=== PATIENT | female | born 1965 | race Caucasian/White ===

== ENCOUNTER 2022-06-21 05:43 | Inpatient (IN) ==
[2022-06-21] MEDS ORDERED: CLINDAMYCIN INJ 900 MG/50 ML PREMIX IV ONE (06:00)
[2022-06-21] MEDS ORDERED: VANCOMYCIN INJ 1,000 MG in SODIUM CHLORIDE 0.9% 250 ML IV ONE (06:00)
[2022-06-21] MEDS ORDERED: LIDOCAINE 2% 5 ML VIAL ONE ×2 (06:38→06:47)
[2022-06-21] MEDS ORDERED: ROCURONIUM 50 MG/5 ML VIAL IV ONE (06:38)
[2022-06-21] MEDS ORDERED: DEXAMETHASONE 4 MG/1 ML VIAL ONE ×2 (06:38→06:47)
[2022-06-21] MEDS ORDERED: propofoL 200 MG/20 ML VIAL IV ONE (06:38)
[2022-06-21] MEDS ORDERED: MIDAZOLAM 2 MG/2 ML VIAL ONE ×2 (06:38→06:39)
[2022-06-21] MEDS ORDERED: ONDANSETRON 4 MG/2 ML VIAL ONE (06:38)
[2022-06-21] MEDS ORDERED: fentaNYL 250 MCG/5 ML VIAL ONE (06:39)
[2022-06-21] MEDS ORDERED: DEXMEDETOMIDINE 200 MCG/2 ML VIAL ONE (06:39)
[2022-06-21] MEDS ORDERED: KETAMINE 500 MG/10 ML VIAL ONE (06:39)
[2022-06-21] MEDS ORDERED: SODIUM CHLORIDE 0.9% 100 ML IV ONE (06:40)
[2022-06-21] MEDS ORDERED: TRANEXAMIC ACID 1,000 MG/10 ML VIAL ONE (06:40)
[2022-06-21] MEDS ORDERED: SUCCINYLCHOLINE 200 MG/10 ML VIAL ONE (06:41)
[2022-06-21] MEDS: LACTATED RINGERS 1,000 ML IV SCH ×2 (06:45→09:20)
[2022-06-21] MEDS ORDERED: ROPIVACAINE 0.5% 30 ML VIAL ONE (06:47)
[2022-06-21 06:52] LABS: INR 0.9; PT Patient Result 10.1 SECS (10.1-12.1); Partial Thromboplastin Time 29.4 SECS (23.7-32.9)
[2022-06-21] MEDS ORDERED: SCOPOLAMINE 1.5 MG PATCH TRANSDERM ONE (07:02)
[2022-06-21] MEDS ORDERED: MAGNESIUM HYDROXIDE SUSP 30 ML UDCUP PO PRN (07:09)
[2022-06-21] MEDS ORDERED: ONDANSETRON 4 MG/2 ML VIAL IV PRN ×2 (07:10→09:04)
[2022-06-21] MEDS ORDERED: oxyCODONE/ACETAMINOPHEN 5-325 MG TABLET PO PRN ×2 (07:10)
[2022-06-21] MEDS ORDERED: MORPHINE 2 MG/1 ML SYRINGE IV PRN ×2 (07:10→07:22)
[2022-06-21] MEDS ORDERED: PROMETHAZINE 25 MG/1 ML VIAL IM PRN (07:10)
[2022-06-21] MEDS ORDERED: BISACODYL 10 MG SUPP RECTAL PRN (07:10)
[2022-06-21] MEDS ORDERED: diphenhydrAMINE CAP 25 MG CAPSULE PO PRN (07:10)
[2022-06-21] MEDS ORDERED: TEMAZEPAM 7.5 MG CAPSULE PO PRN (07:10)
[2022-06-21] MEDS ORDERED: LACTULOSE 20 GM/30 ML UDCUP PO PRN (07:10)
[2022-06-21] MEDS ORDERED: [UNRECOGNIZED DRUG - OTHER] PO PRN (07:13)
[2022-06-21] MEDS ORDERED: PROMETHAZINE 25 MG TABLET PO PRN (07:13)
[2022-06-21] MEDS ORDERED: ALBUTEROL/IPRATROPIUM 3 ML NEB RESP TX PRN (07:13)
[2022-06-21] MEDS ORDERED: ONDANSETRON ODT 4 MG TABLET PO PRN (07:13)
[2022-06-21] MEDS ORDERED: ACETAMINOPHEN INJ 1,000 MG/100 ML VIAL IV ONE (07:25)
[2022-06-21] MEDS ORDERED: LABETALOL 20 MG/4 ML SYRINGE IV ONE (07:57)
[2022-06-21] MEDS ORDERED: NEOSTIGMINE 10 MG/10 ML VIAL ONE (08:16)
[2022-06-21] MEDS ORDERED: HYDROmorphone 1 MG/1 ML SYRINGE ONE (08:16)
[2022-06-21] MEDS ORDERED: GLYCOPYRROLATE 0.4 MG/2 ML VIAL ONE (08:16)
[2022-06-21] MEDS ORDERED: NALOXONE 0.4 MG/ML VIAL IV PRN (08:33)
[2022-06-21] MEDS ORDERED: ALBUTEROL 2.5 MG/3 ML NEB RESP TX ONE (08:45)
[2022-06-21] MEDS ORDERED: HYDROmorphone PCA 30 MG/30 ML SYRINGE IV SCH (09:00)
[2022-06-21] MEDS ORDERED: NON-FORMULARY MEDICATION (L. Gasseri-B. Bifidum-B Longum [Phillips' Colon Health] 1.5 bill PO SCH (09:00)
[2022-06-21] MEDS ORDERED: PROMETHAZINE INJ 25 MG in SODIUM CHLORIDE 0.9% 50 ML IV PRN (09:04)
[2022-06-21] MEDS ORDERED: diphenhydrAMINE 50 MG/1 ML VIAL IV PRN (09:04)
[2022-06-21] MEDS ORDERED: MEPERIDINE 25 MG/1 ML VIAL IV PRN (09:04)
[2022-06-21] MEDS: HYDROmorphone 1 MG/1 ML SYRINGE IV PRN ×5 (09:50→20:16)
[2022-06-21] MEDS: DOCUSATE SODIUM 100 MG CAPSULE PO SCH ×2 (13:38→20:09)
[2022-06-21] MEDS: FEXOFENADINE 180 MG TABLET PO SCH (13:38)
[2022-06-21] MEDS: PANTOPRAZOLE 40 MG TABLET PO SCH ×2 (13:38→20:09)
[2022-06-21] MEDS: CLINDAMYCIN INJ 900 MG/50 ML PREMIX IV SCH ×2 (13:38→22:32)
[2022-06-21] MEDS: tiZANidine 4 MG TABLET PO PRN (13:39)
[2022-06-21] MEDS: GABAPENTIN 400 MG CAPSULE PO SCH ×2 (15:35→20:09)
[2022-06-21] MEDS: NICOTINE 14 MG/24 HR PATCH TRANSDERM SCH (17:24)
[2022-06-21] MEDS: FERROUS SULFATE 325 MG TABLET PO SCH (17:24)
[2022-06-21] MEDS: FONDAPARINUX 2.5 MG/0.5 ML SYRINGE SUBCUT SCH (20:09)
[2022-06-21] MEDS ORDERED: [UNRECOGNIZED DRUG - REMARK] PO SCH (21:00)
[2022-06-22] MEDS: HYDROmorphone 1 MG/1 ML SYRINGE IV PRN ×7 (00:55→23:25)
[2022-06-22] MEDS: oxyCODONE/ACETAMINOPHEN 5-325 MG TABLET PO PRN ×3 (02:49→12:06)
[2022-06-22 05:01] LABS: Basophils % 0.2 % (0.0-0.8); Eosinophils # 0.1 10*3/uL (0.0-0.87); Eosinophils % 0.3 % (0.00-10.9); Hematocrit 40.7 VOL% (35.7-47.0); Hemoglobin 13.7 GM/DL (12.0-16.0); Immature Granulocytes % 0.7 %; Immature Granulocytes Absolute 0.16 #; Lymphocytes % 8.6 % (21.3-54.2); Mean Corpuscular HGB Conc 33.7 GM/DL (32-36); Mean Corpuscular Volume 91.9 FL (87-102); Mean Platelet Volume 9.5 FL (9.6-12.0); Monocytes # 0.9 10*3/uL (0.11-0.8); Neutrophils % 86.2 % (38.7-73.9); Platelet Count 266 T/CUMM (130-400); Red Blood Count 4.43 MC/CUMM (3.8-5.5); Red Cell Distribution Width 13.2 % (9.3-17.3)
[2022-06-22 05:12] LABS: Calcium 9.7 MG/DL (8.5-10.1); Osmolality,Calculated 266.2 MOS/KG (273-304)
[2022-06-22 05:24] LABS: Band Neutrophils 1 % (0-10); Lymphocytes 15 % (20-55); Microcytosis Slight; Total Cells Counted 100
[2022-06-22 05:25] LABS: Platelet Estimate Normal
[2022-06-22] MEDS: [UNRECOGNIZED DRUG - REMARK] PO SCH ×2 (07:32→18:00)
[2022-06-22] MEDS: POTASSIUM CHLORIDE 20 MEQ TABLET PO SCH (08:31)
[2022-06-22] MEDS: NEBIVOLOL 10 MG TABLET PO SCH (08:32)
[2022-06-22] MEDS: ATORVASTATIN 20 MG TABLET PO SCH (08:33)
[2022-06-22] MEDS: DOCUSATE SODIUM 100 MG CAPSULE PO SCH ×2 (08:33→21:51)
[2022-06-22] MEDS: GABAPENTIN 400 MG CAPSULE PO SCH ×3 (08:33→21:51)
[2022-06-22] MEDS: MULTIVITAMIN (CENTRUM) TABLET PO SCH (08:33)
[2022-06-22] MEDS: FERROUS SULFATE 325 MG TABLET PO SCH ×2 (08:33→18:46)
[2022-06-22] MEDS: amLODIPine 10 MG TABLET PO SCH (08:34)
[2022-06-22] MEDS: lisinopriL 20 MG TABLET PO SCH (08:34)
[2022-06-22] MEDS: FEXOFENADINE 180 MG TABLET PO SCH (09:26)
[2022-06-22] MEDS: PANTOPRAZOLE 40 MG TABLET PO SCH ×2 (10:08→21:50)
[2022-06-22] MEDS: FLUTICASONE 50 MCG NASAL SPRAY 16 GM BOTTLE BOTH NARES SCH (10:49)
[2022-06-22] MEDS ORDERED: KETOROLAC 30 MG/1 ML VIAL IV ONE (11:23)
[2022-06-22] MEDS: NICOTINE 14 MG/24 HR PATCH TRANSDERM SCH ×2 (12:46→18:46)
[2022-06-22] MEDS ORDERED: oxyCODONE/ACETAMINOPHEN 5-325 MG TABLET PO PRN (13:56)
[2022-06-22] MEDS: KETOROLAC 15 MG/1 ML VIAL IV SCH ×2 (14:16→21:55)
[2022-06-22] MEDS ORDERED: ROPIVACAINE 0.5% 30 ML VIAL ONE (14:55)
[2022-06-22] MEDS ORDERED: DEXAMETHASONE 4 MG/1 ML VIAL ONE (14:55)
[2022-06-22] MEDS ORDERED: LIDOCAINE 50 MG/5 ML SYRINGE ONE (14:55)
[2022-06-22] MEDS ORDERED: DEXMEDETOMIDINE 200 MCG/2 ML VIAL ONE (14:59)
[2022-06-22] MEDS: FONDAPARINUX 2.5 MG/0.5 ML SYRINGE SUBCUT SCH (21:50)
[2022-06-23] MEDS: KETOROLAC 15 MG/1 ML VIAL IV SCH ×4 (02:00→21:39)
[2022-06-23] MEDS: HYDROmorphone 1 MG/1 ML SYRINGE IV PRN ×4 (04:17→19:20)
[2022-06-23] MEDS: [UNRECOGNIZED DRUG - REMARK] PO SCH ×2 (05:30→17:34)
[2022-06-23] MEDS: oxyCODONE/ACETAMINOPHEN 5-325 MG TABLET PO PRN ×3 (07:36→15:32)
[2022-06-23] MEDS: FERROUS SULFATE 325 MG TABLET PO SCH ×2 (08:33→16:00)
[2022-06-23] MEDS: PANTOPRAZOLE 40 MG TABLET PO SCH ×2 (08:34→21:43)
[2022-06-23] MEDS: DOCUSATE SODIUM 100 MG CAPSULE PO SCH ×2 (08:34→21:44)
[2022-06-23] MEDS: lisinopriL 20 MG TABLET PO SCH (08:34)
[2022-06-23] MEDS: FEXOFENADINE 180 MG TABLET PO SCH (08:34)
[2022-06-23] MEDS: GABAPENTIN 400 MG CAPSULE PO SCH ×3 (08:34→21:42)
[2022-06-23] MEDS: MULTIVITAMIN (CENTRUM) TABLET PO SCH (08:34)
[2022-06-23] MEDS: NEBIVOLOL 10 MG TABLET PO SCH (08:34)
[2022-06-23] MEDS: ATORVASTATIN 20 MG TABLET PO SCH (08:34)
[2022-06-23] MEDS: FLUTICASONE 50 MCG NASAL SPRAY 16 GM BOTTLE BOTH NARES SCH (08:34)
[2022-06-23] MEDS: POTASSIUM CHLORIDE 20 MEQ TABLET PO SCH (08:34)
[2022-06-23] MEDS: amLODIPine 10 MG TABLET PO SCH (08:34)
[2022-06-23] MEDS: NICOTINE 14 MG/24 HR PATCH TRANSDERM SCH (16:00)
[2022-06-23] MEDS: FONDAPARINUX 2.5 MG/0.5 ML SYRINGE SUBCUT SCH (21:39)
[2022-06-23] MEDS: ACETAMINOPHEN 500 MG TABLET PO SCH (21:42)
[2022-06-23] MEDS: oxyCODONE IR 5 MG TABLET PO PRN (22:58)
[2022-06-24] MEDS: HYDROmorphone 1 MG/1 ML SYRINGE IV PRN ×5 (00:41→21:43)
[2022-06-24] MEDS: KETOROLAC 15 MG/1 ML VIAL IV SCH ×4 (03:57→20:20)
[2022-06-24] MEDS: ACETAMINOPHEN 500 MG TABLET PO SCH ×3 (05:41→21:42)
[2022-06-24] MEDS: [UNRECOGNIZED DRUG - REMARK] PO SCH (05:42)
[2022-06-24] MEDS: NEBIVOLOL 10 MG TABLET PO SCH (09:59)
[2022-06-24] MEDS: oxyCODONE IR 5 MG TABLET PO PRN ×2 (09:59→14:29)
[2022-06-24] MEDS: amLODIPine 10 MG TABLET PO SCH (10:00)
[2022-06-24] MEDS: MULTIVITAMIN (CENTRUM) TABLET PO SCH (10:00)
[2022-06-24] MEDS: DOCUSATE SODIUM 100 MG CAPSULE PO SCH ×2 (10:00→20:18)
[2022-06-24] MEDS: POTASSIUM CHLORIDE 20 MEQ TABLET PO SCH (10:01)
[2022-06-24] MEDS: FEXOFENADINE 180 MG TABLET PO SCH (10:01)
[2022-06-24] MEDS: ATORVASTATIN 20 MG TABLET PO SCH (10:01)
[2022-06-24] MEDS: FERROUS SULFATE 325 MG TABLET PO SCH ×2 (10:01→16:04)
[2022-06-24] MEDS: lisinopriL 20 MG TABLET PO SCH (10:01)
[2022-06-24] MEDS: PANTOPRAZOLE 40 MG TABLET PO SCH ×2 (10:01→20:17)
[2022-06-24] MEDS: GABAPENTIN 400 MG CAPSULE PO SCH ×3 (10:02→20:17)
[2022-06-24] MEDS: FLUTICASONE 50 MCG NASAL SPRAY 16 GM BOTTLE BOTH NARES SCH (10:23)
[2022-06-24] MEDS: ACETAMINOPHEN 325 MG TABLET PO PRN (14:29)
[2022-06-24] MEDS: NICOTINE 14 MG/24 HR PATCH TRANSDERM SCH (16:06)
[2022-06-24] MEDS: FONDAPARINUX 2.5 MG/0.5 ML SYRINGE SUBCUT SCH (20:17)
[2022-06-25] MEDS: HYDROmorphone 1 MG/1 ML SYRINGE IV PRN ×5 (03:52→20:57)
[2022-06-25] MEDS: KETOROLAC 15 MG/1 ML VIAL IV SCH ×4 (04:29→20:56)
[2022-06-25] MEDS: ACETAMINOPHEN 500 MG TABLET PO SCH ×3 (05:33→22:04)
[2022-06-25] MEDS: oxyCODONE IR 5 MG TABLET PO PRN ×3 (05:42→23:36)
[2022-06-25] MEDS: [UNRECOGNIZED DRUG - REMARK] PO SCH ×3 (06:08→17:01)
[2022-06-25] MEDS: FERROUS SULFATE 325 MG TABLET PO SCH ×2 (08:43→16:22)
[2022-06-25] MEDS: lisinopriL 20 MG TABLET PO SCH (08:44)
[2022-06-25] MEDS: NEBIVOLOL 10 MG TABLET PO SCH (08:44)
[2022-06-25] MEDS: ATORVASTATIN 20 MG TABLET PO SCH (08:44)
[2022-06-25] MEDS: MULTIVITAMIN (CENTRUM) TABLET PO SCH (08:44)
[2022-06-25] MEDS: amLODIPine 10 MG TABLET PO SCH (08:45)
[2022-06-25] MEDS: POTASSIUM CHLORIDE 20 MEQ TABLET PO SCH (08:45)
[2022-06-25] MEDS: GABAPENTIN 400 MG CAPSULE PO SCH ×3 (08:45→20:55)
[2022-06-25] MEDS: DOCUSATE SODIUM 100 MG CAPSULE PO SCH ×2 (08:45→20:56)
[2022-06-25] MEDS: PANTOPRAZOLE 40 MG TABLET PO SCH ×2 (08:45→20:56)
[2022-06-25] MEDS: FEXOFENADINE 180 MG TABLET PO SCH (08:45)
[2022-06-25] MEDS: FLUTICASONE 50 MCG NASAL SPRAY 16 GM BOTTLE BOTH NARES SCH (08:50)
[2022-06-25] MEDS: NICOTINE 14 MG/24 HR PATCH TRANSDERM SCH (16:22)
[2022-06-25] MEDS: FONDAPARINUX 2.5 MG/0.5 ML SYRINGE SUBCUT SCH (20:55)
[2022-06-25] MEDS: tiZANidine 4 MG TABLET PO PRN (23:36)
[2022-06-26] MEDS: KETOROLAC 15 MG/1 ML VIAL IV SCH ×4 (02:59→19:25)
[2022-06-26] MEDS: HYDROmorphone 1 MG/1 ML SYRINGE IV PRN ×5 (03:00→22:11)
[2022-06-26] MEDS: ACETAMINOPHEN 500 MG TABLET PO SCH ×3 (05:35→21:46)
[2022-06-26] MEDS: [UNRECOGNIZED DRUG - REMARK] PO SCH ×2 (05:35→19:18)
[2022-06-26] MEDS ORDERED: ERGOCALCIFEROL 50,000 UNIT CAPSULE PO SCH (09:00)
[2022-06-26] MEDS: DOCUSATE SODIUM 100 MG CAPSULE PO SCH ×2 (09:01→20:53)
[2022-06-26] MEDS: amLODIPine 10 MG TABLET PO SCH (09:01)
[2022-06-26] MEDS: FERROUS SULFATE 325 MG TABLET PO SCH ×2 (09:02→17:37)
[2022-06-26] MEDS: lisinopriL 20 MG TABLET PO SCH (09:02)
[2022-06-26] MEDS: ATORVASTATIN 20 MG TABLET PO SCH (09:02)
[2022-06-26] MEDS: GABAPENTIN 400 MG CAPSULE PO SCH ×3 (09:02→20:54)
[2022-06-26] MEDS: MULTIVITAMIN (CENTRUM) TABLET PO SCH (09:02)
[2022-06-26] MEDS: PANTOPRAZOLE 40 MG TABLET PO SCH ×2 (09:02→20:54)
[2022-06-26] MEDS: FEXOFENADINE 180 MG TABLET PO SCH (09:02)
[2022-06-26] MEDS: POTASSIUM CHLORIDE 20 MEQ TABLET PO SCH (09:02)
[2022-06-26] MEDS: FLUTICASONE 50 MCG NASAL SPRAY 16 GM BOTTLE BOTH NARES SCH (09:03)
[2022-06-26] MEDS: NEBIVOLOL 10 MG TABLET PO SCH (09:03)
[2022-06-26] MEDS: oxyCODONE IR 5 MG TABLET PO PRN ×2 (11:41→16:03)
[2022-06-26] MEDS: ACETAMINOPHEN 325 MG TABLET PO PRN (13:26)
[2022-06-26] MEDS: NICOTINE 14 MG/24 HR PATCH TRANSDERM SCH (17:38)
[2022-06-26] MEDS: FONDAPARINUX 2.5 MG/0.5 ML SYRINGE SUBCUT SCH (19:18)
[2022-06-27] MEDS: KETOROLAC 15 MG/1 ML VIAL IV SCH ×2 (02:37→08:23)
[2022-06-27] MEDS: HYDROmorphone 1 MG/1 ML SYRINGE IV PRN ×2 (04:24→06:29)
[2022-06-27] MEDS: ACETAMINOPHEN 500 MG TABLET PO SCH (05:13)
[2022-06-27] MEDS: [UNRECOGNIZED DRUG - REMARK] PO SCH (05:13)
[2022-06-27] MEDS: NEBIVOLOL 10 MG TABLET PO SCH (08:21)
[2022-06-27] MEDS: FERROUS SULFATE 325 MG TABLET PO SCH (08:22)
[2022-06-27] MEDS: amLODIPine 10 MG TABLET PO SCH (08:22)
[2022-06-27] MEDS: lisinopriL 20 MG TABLET PO SCH (08:22)
[2022-06-27] MEDS: PANTOPRAZOLE 40 MG TABLET PO SCH (08:22)
[2022-06-27] MEDS: FEXOFENADINE 180 MG TABLET PO SCH (08:22)
[2022-06-27] MEDS: POTASSIUM CHLORIDE 20 MEQ TABLET PO SCH (08:22)
[2022-06-27] MEDS: GABAPENTIN 400 MG CAPSULE PO SCH (08:22)
[2022-06-27] MEDS: MULTIVITAMIN (CENTRUM) TABLET PO SCH (08:22)
[2022-06-27] MEDS: DOCUSATE SODIUM 100 MG CAPSULE PO SCH (08:22)
[2022-06-27] MEDS: ATORVASTATIN 20 MG TABLET PO SCH (08:22)
[2022-06-27] MEDS: oxyCODONE IR 5 MG TABLET PO PRN (08:27)
[2022-06-27] MEDS: FLUTICASONE 50 MCG NASAL SPRAY 16 GM BOTTLE BOTH NARES SCH (08:56)
[2022-06-27 11:20] VITALS: BP 124/78
== END 2022-06-27 11:47 | DRG 470 ==
LOC: N.OR 05:43 → N.SDSINP 05:45 → N.3E 09:36
PROVIDERS: ADMIT Orthopaedic Surgery; ATTEND Orthopaedic Surgery